=== PATIENT | male | born 1990 | race Caucasian/White ===

== ENCOUNTER 2016-11-14 18:06 | Observation (INO) | payer OTHER ==
--- NOTE | 2016-11-14 18:26 | EDPHY ---
H & P Stated Complaint: R pinky injury/cut vs paint compressor at work 1.5 hours [employer]. Time Seen by Provider: 11/14/16 18:13 HPI/ROS: CHIEF COMPLAINT: High-pressure injection injury HISTORY OF PRESENT ILLNESS: The patient is a 18-year-old man who was at work and accidentally injected paint into his right little finger. He has a small puncture wound to the distal phalanx and it is swollen to the proximal phalanx. He has pain. Normal range of motion. He was using a paint gun with water- based primer. He denies other injuries. This happened about an hour prior to arrival. REVIEW OF SYSTEMS: Constitutional: denies: chills, fever, recent illness, recent injury EENTM: denies: blurred vision, double vision, nose congestion Respiratory: denies: cough, shortness of breath Cardiac: denies: chest pain, irregular heart rate, lightheadedness, palpitations Gastrointestinal/Abdominal: denies: abdominal pain, diarrhea, nausea, vomiting, blood streaked stools Genitourinary: denies: dysuria, frequency, hematuria, pain Musculoskeletal: denies: joint pain, muscle pain Skin: denies: lesions, rash, jaundice, bruising Neurological: denies: headache, numbness, paresthesia, tingling, dizziness, weakness Hematologic/Lymphatic: denies: blood clots, easy bleeding, easy bruising Immunologic/allergic: denies: HIV/AIDS, transplant EXAM: GENERAL: Well-appearing, well-nourished and in no acute distress. HEAD: Atraumatic, normocephalic. EYES: Pupils equal round and reactive to light, extraocular movements intact, sclera anicteric, conjunctiva are normal. ENT: TMs normal, nares patent, oropharynx clear without exudates. Moist mucous membranes. NECK: Normal range of motion, supple without lymphadenopathy or JVD. LUNGS: Breath sounds clear to auscultation bilaterally and equal. No wheezes rales or rhonchi. HEART: Regular rate and rhythm without murmurs, rubs or gallops. ABDOMEN: Soft, nontender, normoactive bowel sounds. No guarding, no rebound. No masses appreciated. BACK: No CVA tenderness, no spinal tenderness, step-offs or deformities EXTREMITIES: Puncture wound to distal right 5th phalanx. Moderate swelling to the proximal phalanx. Pain. No erythema. Normal range of motion and sensation. Bleeding controlled NEUROLOGICAL: Cranial nerves II through XII grossly intact. Normal speech, normal gait. 5/5 strength, normal movement in all extremities, normal sensation PSYCH: Normal mood, normal affect. SKIN: Warm, dry, normal turgor, no visible rashes or lesions. Source: Patient Exam Limitations: No limitations - Personal History Current Tetanus Diphtheria and Acellular Pertussis (TDAP): Unsure - Medical/Surgical History Hx Asthma: No Hx Chronic Respiratory Disease: No Hx Diabetes: No Hx Cardiac Disease: No Hx Renal Disease: No Hx Cirrhosis: No Hx Alcoholism: No Hx HIV/AIDS: No Hx Splenectomy or Spleen Trauma: No Other PMH: denies - Family History Significant Family History: No pertinent family hx - Social History Smoking Status: Never smoked Alcohol Use: Sober Drug Use: None Constitutional: Initial Vital Signs Temperature (C) 37.1 C 11/14/16 18:16 Heart Rate 67 11/14/16 18:16 Respiratory Rate 16 11/14/16 18:16 Blood Pressure 143/97 H 11/14/16 18:16 O2 Sat (%) 95 11/14/16 18:16 O2 Delivery Mode Room Air Allergies/Adverse Reactions: No Known Allergies Allergy (Unverified 11/14/16 18:15) Home Medications: Medication Instructions Recorded NK [No Known Home Meds] 11/14/16 Medical Decision Making - Diagnostics Imaging Results: Imaging Impressions Finger X-Ray 11/14/16 18:23 Impression: Radiodense debris projected over the palmar soft tissues of the distal fifth finger, with no acute osseous abnormality observed. ED Course/Re-evaluation: The patient has a significant high-pressure injection injury of paint. These wounds are notoriously unimpressive initially but can become severe requiring emergency the radical debridement. I have paged General surgery and will likely also consult Hand surgery. This patient will likely require transfer. 6:35 p.m. I discussed the case with Dr. Cathleen Angulo who suggest Hand surgery or possibly transfer to [facility]. 6:50 p.m. I discussed the case with Dr. Ray Welch who suggest the patient go immediately to the emergency department where he will meet him and prepare for emergency debridement. I instructed the patient not to stop or eat or drink on the way. His last p.o. intake was at 5:00 p.m.. His family will take him. He will go to the ER. I spoke with Dr. Francisco Sánchez who agrees with the plan. I will order a bed for inpatient placement. Differential Diagnosis: Partial list of the Differential diagnosis considered include but were not limited to; high-pressure injection injury, foreign body and although unlikely based on the history and physical exam, I also considered nerve injury, vascular injury. Critical Care Time: Critical care time spent by me, Dr. Lai exclusive with this patient was 35 minutes, exclusive of the PA time exclusive of procedures. The organ system that was at risk was musculoskeletal, vascular and I gave emergency transfer and consultations to prevent worsening of the patient's condition - Data Points Laboratory Results: Laboratory Results 11/14/16 18:58 11/14/16 18:58 11/14/16 11/14/16 11/14/16 18:58 18:58 18:58 WBC 7.52 10^3/uL 10^3/uL (3.80-9.50) RBC 5.05 10^6/uL 10^6/uL (4.40-6.38) Hgb 14.0 g/dL g/dL (13.7-17.5) Hct 41.5 % % (40.0-51.0) MCV 82.2 fL fL (81.5-99.8) MCH 27.7 pg L pg (27.9-34.1) MCHC 33.7 g/dL g/dL (32.4-36.7) RDW 13.2 % % (11.5-15.2) Plt Count 228 10^3/uL 10^3/uL (150-400) MPV 10.1 fL fL (8.7-11.7) Neut % (Auto) 66.4 % % (39.3-74.2) Lymph % (Auto) 25.8 % % (15.0-45.0) Garland % (Auto) 5.7 % % (4.5-13.0) Eos % (Auto) 1.5 % % (0.6-7.6) Baso % (Auto) 0.3 % % (0.3-1.7) Nucleat RBC Rel Count 0.0 % % (0.0-0.2) Absolute Neuts (auto) 5.00 10^3/uL 10^3/uL (1.70-6.50) Absolute Lymphs (auto) 1.94 10^3/uL 10^3/uL (1.00-3.00) Absolute Monos (auto) 0.43 10^3/uL 10^3/uL (0.30-0.80) Absolute Eos (auto) 0.11 10^3/uL 10^3/uL (0.03-0.40) Absolute Basos (auto) 0.02 10^3/uL 10^3/uL (0.02-0.10) Absolute Nucleated RBC 0.00 10^3/uL 10^3/uL (0-0.01) Immature Gran % 0.3 % % (0.0-1.1) Immature Gran # 0.02 10^3/uL 10^3/uL (0.00-0.10) PT 13.1 SEC SEC (12.0-15.0) INR 1.02 (0.83-1.16) APTT 41.9 SEC H SEC (23.0-38.0) Sodium 141 mEq/L mEq/L (134-144) Potassium 3.7 mEq/L mEq/L (3.5-5.2) Chloride 104 mEq/L mEq/L (97-110) Carbon Dioxide 21 mEq/l L mEq/l (22-31) Anion Gap 16 mEq/L mEq/L (8-16) BUN 17 mg/dL mg/dL (7-23) Creatinine 0.8 mg/dL mg/dL (0.7-1.3) Estimated GFR > 60 Glucose 100 mg/dL mg/dL (70-100) Calcium 8.9 mg/dL mg/dL (8.5-10.4) Medications Given: Discontinued Medications Diphtheria/Tetanus/Acell Pertussis (Boostrix) 0.5 ml IM .ONCE ONE Stop: 11/14/16 18:44 Last Admin: 11/14/16 18:51 Dose: 0.5 ml Departure - Departure Disposition: [facility] Clinical Impression: High-pressure injection injury of finger Qualifiers: Encounter type: initial encounter Laterality: right Qualified Code(s): S69.81XA - Other specified injuries of right wrist, hand and finger(s), initial encounter Condition: Fair Referrals: IMER GEE,. [Primary Care Provider] - As per Instructions
[2016-11-14] MEDS ORDERED: TDAP ADULT 0.5 ML INJ (BOOSTRIX) IM ONE (18:43)
[2016-11-14 19:03] LABS: % IMMATURE GRANULYOCYTES 0.3 % (0.0-1.1); ABSOLUTE IMMATURE GRANULOCYTES 0.02 10^3/uL (0.00-0.10); ADD DIFF? NO; ADD MORPH? NO; ADD SCAN? NO; ATYPICAL LYMPHOCYTE FLAG 0 (0-99); FRAGMENT RBC FLAG 0 (0-99); HEMATOCRIT 41.5 % (40.0-51.0); LEFT SHIFT FLG 0 (0-99); LIPEMIA HEMOLYSIS FLAG 80 (0-99); MEAN CELL HEMOGLOBIN 27.7 pg (27.9-34.1); MEAN CELL HEMOGLOBIN CONCENTR. 33.7 g/dL (32.4-36.7); MEAN CELL VOLUME 82.2 fL (81.5-99.8); MEAN PLATELET VOLUME 10.1 fL (8.7-11.7); PLATELET CLUMPS FLAG 0 (0-99); PLATELET COUNT 228 10^3/uL (150-400); RED BLOOD CELL COUNT 5.05 10^6/uL (4.40-6.38); RED CELL DISTRIBUTION WIDTH 13.2 % (11.5-15.2)
[2016-11-14 19:12] LABS: INR 1.02 (0.83-1.16); PROTIME(PATIENT) 13.1 SEC (12.0-15.0)
[2016-11-14 19:13] LABS: ANION GAP 16 mEq/L (8-16); APTT 41.9 SEC (23.0-38.0); CALCIUM 8.9 mg/dL (8.5-10.4); CARBON DIOXIDE 21 mEq/l (22-31); CHLORIDE 104 mEq/L (97-110); CREATININE 0.8 mg/dL (0.7-1.3); GLOMERULAR FILTRATION RATE > 60; GLUCOSE 100 mg/dL (70-100); POTASSIUM 3.7 mEq/L (3.5-5.2); SODIUM 141 mEq/L (134-144)
[2016-11-14] MEDS ORDERED: ceFAZolin 2 GM/DEXTROSE 100 ML IV ONE (19:34)
[2016-11-14] MEDS ORDERED: HYDROmorphONE/DILAUDID 2 MG/ML INJ IVP PRN (19:40)
[2016-11-14] MEDS ORDERED: oxyCODONE IR 5 MG TAB PO PRN (19:40)
[2016-11-14] MEDS ORDERED: ONDANSETRON 4 MG/2 ML VIAL IVP PRN (19:40)
[2016-11-14] MEDS ORDERED: BUPIVACAINE 0.5% 30 ML SDV ONE (19:45)
[2016-11-14] MEDS ORDERED: BACITRACIN 50,000 UNITS/10 ML SYR IRR ONE (19:45)
[2016-11-14] MEDS ORDERED: POLYMYXIN B SULFATE 500,000 UNIT/10 ML SYR IRR ONE (19:45)
[2016-11-14] MEDS ORDERED: NS 1,000 ML IV SCH (19:45)
[2016-11-14] MEDS ORDERED: fentaNYL 100 MCG/2 ML INJ ONE ×3 (19:52→22:22)
[2016-11-14] MEDS ORDERED: MIDAZOLAM 2 MG/2 ML VIAL ONE (20:15)
--- NOTE | 2016-11-14 20:24 | PDANEPAE ---
ANE History of Present Illness 26 year old male who injured his Justin sheldon at work with a paint injector. ANE Past Medical History Past Medical History: Healthy, no PMH, no PSH. No prescription meds at home. - Cardiovascular History Hx Hypertension: No Hx Chest Pain: No Hx Coronary Artery / Peripheral Vascular Disease: No - Pulmonary History Hx COPD: No Hx Asthma/Reactive Airway Disease: No Hx Recent Upper Respiratory Infection: No Hx Oxygen in Use at Home: No - Endocrine History Hx Diabetes: No Obesity: no ANE Patient History - Allergies Allergies/Adverse Reactions: No Known Allergies Allergy (Unverified 11/14/16 18:15) - Home Medications Home medications: none Home Medications: NK [No Known Home Meds] 11/14/16 [Last Taken Unknown] - NPO status NPO Since - Liquids (Date): 11/14/16 NPO Since - Liquids (Time): 17:00 NPO Since - Solids (Date): 11/14/16 NPO Since - Solids (Time): 17:00 - Anes Hx Hx Anesthesia Complications (with details): Never had anesthesia before. - Smoking Hx Smoking Status: Never smoked Marijuana use: No - Alcohol Use Alcohol Use: Occasionally - Family Anes Hx Family Anes Hx: none ANE Labs/Vital Signs - Labs Result Diagrams: 11/14/16 18:58 11/14/16 18:58 - Vital Signs Blood Pressure: 143/97 Heart Rate: 67 Respiratory Rate: 16 O2 Sat (%): 95 Height: 177.8 cm Weight: 90.718 kg ANE Physical Exam - Airway Neck exam: FROM Mallampati Score: Class 2 Mouth exam: poor dentition - Pulmonary Pulmonary: clear to auscultation - Cardiovascular Cardiovascular: regular rate and rhythym - ASA Status ASA Status: II, E ANE Anesthesia Plan Regional Anesthesia: Victorino block
[2016-11-14] MEDS ORDERED: PROPOFOL 200 MG/20 ML VIAL ONE ×2 (21:06→21:29)
[2016-11-14] MEDS ORDERED: LIDOCAINE 2% 5 ML SDV ONE (21:09)
[2016-11-14] MEDS ORDERED: ONDANSETRON 4 MG/2 ML VIAL ONE (21:35)
[2016-11-14] MEDS ORDERED: DEXAMETHASONE 4 MG/ML VIAL ONE (21:35)
[2016-11-14] MEDS ORDERED: NALOXONE HCL 0.4 MG/ML INJ IVP PRN (21:41)
[2016-11-14] MEDS ORDERED: ALBUTEROL 3 ML DEYVIAL IH PRN (21:41)
[2016-11-14] MEDS ORDERED: KETOROLAC 30 MG/1 ML SDV ONE (21:41)
[2016-11-14] MEDS ORDERED: LABETALOL HCL 50 MG/10 ML SYR IVP PRN (21:41)
[2016-11-14] MEDS ORDERED: PROMETHAZINE HCL 25 MG/ML INJ IVP PRN (21:41)
[2016-11-14] MEDS ORDERED: fentaNYL 100 MCG/2 ML INJ IVP PRN (21:41)
[2016-11-14] MEDS ORDERED: ACETAMINOPHEN 500 MG TAB PO PRN (21:41)
[2016-11-14] MEDS ORDERED: OXYCODONE/APAP 5/325 TAB PO PRN (21:41)
[2016-11-14] MEDS ORDERED: LR 500 ML IV PRN (21:41)
--- NOTE | 2016-11-14 22:18 | POSTANESTH ---
Post Anesthetic Evaluation Cardiovascular Status: Normal, Stable Respiratory Status: Normal, Stable Level of Consciousness/Mental Status: Mildly Sleepy, Arousable Pain Control: Adequate, Prn Tx Ordered Nausea/Vomiting Control: Adequate, Prn Tx Ordered Complications Possibly Related to Anesthesia: None Noted
--- NOTE | 2016-11-14 22:21 | PDGENHP ---
History and Physical History and Physical: HPI: 26 year old male s/p a right small finger distal phalanx tip high-pressure injection injury with water-based primer earlier today. PE: Gen: NAD AVSS CV:RRR Pulm: CTAB RUE: 2mm puncture wound overlying the volar and radial aspect of the right small finger distal phalanx +FDS, FDP, FPL, DI, PI +SILT in M/R/U distributions 2+ radial and ulnar pulses Assessment and Plan: 26 year old male s/p a right small finger distal phalanx tip high-pressure injection injury with water-based primer earlier today. -I have discussed the RBAC associated with both non-operative and operative forms of intervention and I am recommending emergent operative intervention -The patient fully understands the RBAC associated with both forms of treatment and he wishes to proceed with operative intervention in the form of right small finger irrigation and debridement -He has signed the informed consent form for surgery and surgery will be performed as soon as the OR is available
--- NOTE | 2016-11-14 22:23 | POSTOPPROG ---
Post Op Note Date of Operation: 11/14/16 Surgeon: Neal Myers Anesthesiologist: Sherron Crews Anesthesia: GET(General Endotracheal) Pre-op Diagnosis: Right small finger high-pressure primer injection injury Post-op Diagnosis: Right small finger high-pressure primer injection injury Indication: Right small finger high-pressure primer injection injury Procedure: Right small finger irrigation and debridement with removal of foreign body Inf/Abcess present in the surg proc area at time of surgery?: No Depth: Deep Incisional (Fascial) EBL: Minimal Complications: None Drains: Other (1/4 inch iodoform Nu-gauze inserted into distal aspect of wound)
--- NOTE | 2016-11-14 22:26 | SOAPPROG ---
SOAP Progress Note Assessment/Plan: Assessment: HPI: 26 year old male now POD#0 from right small finger distal phalanx irrigation and debridement after a high-pressure injection injury with water- based primer on 11/14/16 PE: Gen: BLOSSOM MAYES RUE: Original dressing CDI +FDS, FDP, FDP-I, EDC, DI, PI +SILT in M/R/U distributions 2+ radial and ulnar pulses Assessment and Plan: 26 year old male now POD#0 from right small finger distal phalanx irrigation and debridement after a high-pressure injection injury with water-based primer on 11/14/16 -Leave current dressing and packing strip in place until POD#1 -Keep right hand clean and dry -Encourage early right small finger ROM -IV/PO pain control -Ancef 2grams IV q8 hours -Probable discharge to home in AM 11/14/16 22:23 Objective: Vital Signs Temp Pulse Resp BP Pulse Ox 37.1 C 67 16 143/97 H 95 11/14/16 18:16 11/14/16 20:24 11/14/16 20:24 11/14/16 20:24 11/14/16 20:24 PT 13.1 SEC (12.0-15.0) 11/14/16 18:58 INR 1.02 (0.83-1.16) 11/14/16 18:58 ICD10 Worksheet Patient Problems: Problems Problem Status Onset High-pressure injection injury of finger Acute
[2016-11-14] MEDS: ceFAZolin 2 GM/DEXTROSE 100 ML IV SCH (22:56)
--- NOTE | 2016-11-15 01:20 | GCON ---
[f rep st] CONSULTATION Patient Name: FIDELIA TRUONG N-Number: [id number] Date of : 1990 Patient Status: Inpatient Attending Doctor: Benja Lai MD Consulting Doctor: Neal Myers MD Date of service: 11/14/16 CPT codes: CPT code 68452 ER visit requiring admission or initial inpatient visit, level three Modifier 57 Decision for surgery CHIEF COMPLAINT: Right small finger paint gun injection injury HISTORY OF PRESENT ILLNESS: This is a very pleasant 26 year old male with a significant history for sustaining a right small finger volar distal phalanx high-pressure paint gun injection injury with water-based primer earlier today (11/14/16) when he was at work. He initially presented to [facility] urgent care and was then transferred to [facility] ED for emergent operative intervention. PROBLEM LIST: Right small finger volar distal phalanx high-pressure paint gun injection injury with water-based primer PAST MEDICAL HISTORY: None SURGERIES: None SOCIAL HISTORY: Occasional EtOH, denies tobacco or illicit drug use FAMILY HISTORY: Non-contributory CURRENT MEDICATIONS: None ALLERGIES: NKDA REVIEW OF SYSTEMS Constitutional: No unexpected weight loss, weight gain, fevers, chills, or fatigue. Eyes: No blurred or double vision, no eye pain, redness or swelling. ENT: No headaches, difficulty swallowing, nose bleeds, tinnitus, or earaches. Cardiovascular: No chest pain, palpitations, fainting or murmurs. Respiratory: No shortness of breath, wheezing, cough, of difficulty breathing. GI: No reflux, no nausea or vomiting, no constipation, diarrhea, or bloody stools. Genitourinary: No urinary frequency or urgency, no pain with urination. Skin: No skin changes, rashes, itching, or redness. Neurologic: No unsteadiness of gait, no dizziness, tremors, or seizures. Psychiatric: No nervousness, anxiety, depression, or hallucinations. Hematologic: No increased bleeding or easy bruising. Endocrine: No excessive thirst or urination and no heat or cold intolerances. Allergic: No reactions to food or environment. Musculoskeletal: See history of present illness. PHYSICAL EXAM General: No apparent distress. Orientation: Alert and oriented times three Mood and affect: Calm, appropriate. Gait and station: Normal gait and station. Skin: Warm, dry. Lymph: Non tender neck, axillary and inguinal nodes. Chest: Equal expansion, no pain with deep breaths, speaks in coherent sentences. Cardiovascular: Regular pulse. Abdomen: Soft, non-tender, no masses, no palpable hernias. Bilateral finger examination Inspection/palpation: Right: Right small finger volar distal phalanx 2mm by 3mm puncture wound, moderate enlargement of right small finger pulp space, TTP overlying the flexor sheath at the middle phalanx level Left: Soft, no tenderness to palpation. Finger ROM Index MCP: 0-80 / 0-80 / 0-80 PIP: 0-105 / 0-105 / 0-105 DIP: 0-75 / 0-75 / 0-75 Long MCP: 0-80 / 0-80 / 0-80 PIP: 0-105 / 0-105 / 0-105 DIP: 0-75 / 0-75 / 0-75 Ring MCP: 0-80 / 0-80 / 0-80 PIP: 0-105 / 0-105 / 0-105 DIP: 0-75 / 0-75 / 0-75 Small MCP: 0-60 / 0-80 / 0-80 PIP: 0-45 / 0-105 / 0-105 DIP: 0-35 / 0-75 / 0-75 Finger motor and sensory Index FDS: + / + / + FDP: + / + / + EDC: + / + / + RDN: + / + / + UDN: + / + / + Long FDS: + / + / + FDP: + / + / + EDC: + / + / + RDN: + / + / + UDN: + / + / + Ring FDS: + / + / + FDP: + / + / + EDC: + / + / + RDN: + / + / + UDN: + / + / + Small FDS: + / + / + FDP: + / + / + EDC: + / + / + RDN: + / + / + UDN: + / + / + Medical decision making Data Imaging study: right hand radiographs, three views Action: interpreted Interpretation / pertinent findings: right small finger pulp space demonstrates radio-opaque foreign material Diagnoses New diagnosis: right small finger high-pressure injection injury Work-up planned: yes: see assessment and plan Assessment and plan This is a 26 year old male s/p a right small finger volar distal phalanx high- pressure paint gun injection injury with water-based primer after an injury earlier today (11/14/16) when he was at work -As such I have discussed with the patient the risks, benefits, alternatives, and complications associated with both non-operative (specifically, observation , antibiotics) and operative (specifically, right small finger irrigation and debridement) forms of treatment -The patient fully understands the risks, benefits, alternatives, and complications of both forms of treatment and the patient wishes to proceed with operative intervention as outlined above -He has signed the informed consent form for surgery and surgery will be performed as soon as the OR is available Time I have spent 80 minutes of [id number] time with the patient during this visit. Over fifty percent of this time was spent counseling the patient on the risks, benefits, alternatives, and complications of both non-operative and operative forms of treatment as outlined above. /[id number]/MODL MTDD
--- NOTE | 2016-11-15 01:45 | GOP ---
[f rep st] OPERATIVE REPORT PATIENT: FIDELIA TRUONG DATE OF SERVICE: 11/14/16 PATIENT DATE OF : 1990 SURGEON: Neal Myers M.D. NURSING TECHN: Azeem ANESTHESIA: Victorino block / general anesthesia PRE-OPERATIVE DIAGNOSES: Right small finger high-pressure injection injury (ICD-10 code T70.4xxA effects of high-pressure fluids, initial encounter) Right small finger volar distal phalanx laceration with retained foreign body ( ICD-10 code S61.226A right small finger laceration with foreign body, without damage to nail) POST-OPERATIVE DIAGNOSES: Right small finger high-pressure injection injury (ICD-10 code T70.4xxA effects of high-pressure fluids, initial encounter) Right small finger volar distal phalanx laceration with retained foreign body ( ICD-10 code S61.226A right small finger laceration with foreign body, without damage to nail) OPERATIVE PROCEDURES: CPT code 06726 Debridement of bone, first 20 square cm or less CPT code 05913 Right small finger radial and ulnar digital nerve neuroplasties CPT code 31079 Right small finger A1 sandrine release CPT code 84425 Right small finger drainage of a tendon sheath CPT code 58430 Right small finger laceration repair, 2.5cm or less EBL: 1cc COMPLICATIONS: None TOURNIQUET TIME: 110 minutes at 250 mmHg IMPLANTS: One strip of inch iodoform nu-gauze BRIEF CLINICAL NOTE: This is a very pleasant 26 year old male with a significant history for sustaining a right small finger volar distal phalanx high-pressure pain gun injection injury with water-based primer earlier today () when he was at work. As such, I discussed the risks, benefits, alternatives, and complications associated with both non-operative (specifically , observation, antibiotics) and operative (specifically, right small finger irrigation and debridement) forms of treatment. The patient fully understood the risks, benefits, alternatives, and complications associated with both forms of treatment and wished to proceed with operative intervention as outlined above. The patient signed the informed consent form for surgery. OPERATIVE NOTE: On the day of surgery, all of the patients questions were answered. The patient was then transferred from the pre-operative area into the operating room and a formal, Time-Out procedure was performed. The patient was identified by name, medical record number, social security number, and date of . In addition, the patients right upper extremity was identified as the correct portion of the patients body for surgery with the patients right small finger being identified as the correct portion of that extremity for surgery. The brachium was then padded with webril and tourniquet was applied. The extremity was then prepped and draped in the normal sterile fashion. The extremity was then elevated for several minutes and the tourniquet was inflated to 250mm Hg. Carlos-type incisions were marked out overlying the right small finger distal phalanx at the level of the puncture wound with extension proximally to the middle phalanx and a separate incision was marked out overlying the right small finger A1 sandrine. A number 15 blade was then utilized to incise the skin overlying the volar distal and middle phalanges. The radial and ulnar neurovascular bundles as well as the flexor tendon were identified and protected. Skin flaps were carefully elevated and tied back in place utilizing 4 -0 nylon sutures. The pulp space was completely filled with primer and there was primer tracking proximally along the neurovascular bundles and the flexor sheath into the middle phalanx. The finger was then sharply surgically debrided including skin, subcutaneous fat, fascia, and bone to remove all of the primer from the surrounding tissue. Next, a number 15 blade was used to incise the skin overlying the right small finger A1 sandrine. Meticulous hemostasis was obtained in the subcutaneous plane. The radial and ulnar neurovascular bundles and the flexor tendons were identified and protected. The A1 sandrine was then released in its entirety using a number 15 blade. A five Macedonian pediatric feeding tube was then advanced into the proximal flexor sheath in an anterograde fashion. The entire flexor sheath was then copiously irrigated with sterile normal saline mixed with Bacitracin and polymixin. In addition both wounds were copiously irrigated with sterile normal saline mixed with bacitracin and polymixin. A small strip of -inch iodoform nu-gauze packing was then inserted into the the previous pulp space overlying the volar distal phalanx. The laceration and incisions were then re-approximated with 4-0 nylon sutures. The hand, fingers, and thumb were then cleaned with sterile normal saline and dried. Betadine soaked gauze was then applied to the incisions followed by a dry sterile dressing and a compressive Coban wrap. Once the dressing was completely in place, the tourniquet was deflated. After complete deflation of the tourniquet, all fingers and the thumb demonstrated brisk capillary refill. The patient was then reversed from anesthesia and transferred from the operating room table onto the post-operative gurney and transferred from the operating room to the post-anesthesia care unit in stable condition. POST-OPERATIVE PLAN: The patient will remain in the current dressing with the packing strip in place overnight. He will be admitted to the hospital for observation. The packing strip will be removed tomorrow and he will most likely be able to go home at that point with follow-up in the office. /[id number]/MODL MTDD
[2016-11-15] MEDS: ceFAZolin 2 GM/DEXTROSE 100 ML IV SCH (05:31)
[2016-11-15 08:04] VITALS: TEMP 98.2
[2016-11-15 11:39] VITALS: BP 115/52; PULSE 48; RESP 18; O2SAT 98
== END 2016-11-15 14:05 | disposition still patient (30) ==
LOC: F3E 23:10
PROVIDERS: ADMIT Orthopaedic Surgery Hand Surgery; ATTEND Orthopaedic Surgery Hand Surgery
PROC: 0JBJ0ZZ Excision of Right Hand Subcutaneous Tissue and Fascia, Open Approach (ICD-10-PCS; principal; 2016-11-14 19:30)
PROC: 0PBT0ZZ Excision of Right Finger Phalanx, Open Approach (ICD-10-PCS; principal; 2016-11-14 19:30)
DX: T70.4XXA Effects of high-pressure fluids, initial encounter (principal); Z77.29 Contact with and (suspected) exposure to other hazardous substances
CPT/HCPCS: 11044; 73140; 90471; 99291; G0378; 80048-PO; 85025-PO; 85610-PO; 85730-PO; J0690; J1100; J1885; J2250; J2405; J2704; J3010